=== PATIENT | male | born 1965 | race Two or more races ===

== ENCOUNTER 2019-01-16 09:12 | Outpatient (REF) | payer MEDICAID, SELFPAY ==
[2019-01-16 20:28] LABS: Calculated LDL 159; Cholesterol 248 mg/dL (50-200); Glucose 103 mg/dL (70-100); HDL Cholesterol 52 mg/dL (40-60); Triglyceride 189 mg/dL (30-150)
== END 2019-01-16 09:32 ==
LOC: NCHCN 09:12
PROVIDERS: PCP Family Medicine; Visit Provider Nurse Practitioner Family
DX: E78.5 Hyperlipidemia, unspecified (principal)
CPT/HCPCS: 80061; 82947; 83721

== ENCOUNTER 2019-06-17 10:24 | Outpatient (REF) | payer MEDICAID, SELFPAY ==
[2019-06-19 11:18] LABS: HBs Antibody, Quant 33.1 mIU/mL; Hepatitis B Surface Ab Positive (See Note)
== END 2019-06-17 10:44 ==
LOC: NCHCN 10:24
PROVIDERS: PCP Family Medicine; Visit Provider Nurse Practitioner Family
DX: Z01.84 Encounter for antibody response examination (principal)
CPT/HCPCS: 86706

== ENCOUNTER 2019-08-14 11:57 | Outpatient (CLI) | payer MEDICAID, SELFPAY ==
--- NOTE | 2019-08-14 10:55 | DI.RAD_ITS ---
EXAM: XR KNEE LT 3V AP,LAT,AMY INDICATION: pain. COMPARISON: No exams were available for comparison TECHNIQUE: 2D digital imaging was performed. FINDINGS: The articular surfaces are well maintained. Bones are intact and normally mineralized. There is a j oint effusion. The soft tissues are unremarkable.
== END 2019-08-14 12:17 ==
PROVIDERS: PCP Family Medicine; Visit Provider Orthopaedic Surgery
DX: M25.562 Pain in left knee (principal); M25.462 Effusion, left knee
CPT/HCPCS: 73562

== ENCOUNTER 2019-08-19 06:55 | Day surgery (SDC) | payer MEDICAID, SELFPAY ==
[2019-08-19 07:13] VITALS: BP 115/75; PULSE 71; RESP 18; TEMP 36.1; O2SAT 97
== END 2019-08-19 08:00 | disposition home or self-care (01) ==
LOC: SUR 06:56
PROVIDERS: PCP Nurse Practitioner Family; Visit Provider Orthopaedic Surgery
DX: M23.92 Unspecified internal derangement of left knee (principal); Z53.8 Procedure and treatment not carried out for other reasons

== ENCOUNTER 2019-08-21 12:25 | Day surgery (SDC) | payer MEDICAID, SELFPAY ==
[2019-08-21] VITALS (8 sets, daily range): BP systolic 120–136; BP diastolic 75–94; PULSE 62–68; RESP 16–19; TEMP 36.4–36.8; O2SAT 94–98
[2019-08-21] MEDS: Lactated Ringers 1,000 ML 80 ML IV (13:21)
[2019-08-21] MEDS: ceFAZolin 2 GM/50 ML BAG IVPB (14:22)
[2019-08-21] MEDS: Bupivacaine 0.5% Pres-Free 30 ML VIAL (14:50)
--- NOTE | 2019-08-21 16:04 | PDOC.DSDIS_ITS ---
Discharge Plan Disposition Patient Disposition: HOME Condition: Good Discharge Details Reason For Visit: Arthroscopy L knee Attending Provider: Rohan Carpenter Primary Care Provider: Melissa Champion Home Meds and New Rx's Prescriptions: New oxycodone 5 mg tablet 5 mg PO Q6H PRN (Reason: pain) Qty: 14 RF: 0 celecoxib [Celebrex] 200 mg capsule 200 mg PO BID Qty: 30 RF: 1 Continued ascorbic acid (vitamin C) [Vitamin C] 500 mg Tablet 500 mg PO DAILY RF: 0 vitamin B complex [B-Complex] Tablet RF: 0 zinc 50 mg Tablet 50 mg PO DAILY RF: 0 Discharge Instructions Additional Instructions: Elevate L leg on 1-2 pillows as much as possible for next 48 hours. Apply cryocuff continuously to L knee overnite tonite. Tomorrow, start to use 4 times/day for 1 hour each time. Crutches to walk. May put as much weight on L leg as your pain allows. Discontinue crutches when you can step on L leg with only mild discomfort. May remove dressings, shower, and get incisions wet after 48 hours. Leave incisions uncovered when they are dry and sealed. Begin outpatient physical therapy at [facility] on Mon or Monday to rehab L knee post-arthroscopic partial medial meniscectomy. Take Celebrex twice/day to decrease inflammation and swelling. Take oxycodone for breakthru pain, if needed. Follow up with in 2 weeks. Stand Alone Forms: DSU Post op Instructions Referrals: Rohan Carpenter MD [ [facility] STAFF PHYSICIAN] - (f/u in 2 weeks.) Equipment/Supplies: Partial Weight Bearing Crutches Activity:: Activity as Tolerated Remove Dressings/Wound Care:: 48 hours Shower/Bathe:: 48 hours Diet:: As Tolerated Discharge Orders Discharge Orders: Discharge Order (Routine); Ordered 08/21/19 Ordered By: Rohan Carpenter DS: Diagnosis Discharge Diagnosis (1) Internal derangement of left knee: Status: Acute
[2019-08-21] MEDS: oxyCODONE-CR 10 MG TABCR PO (16:33)
[2019-08-21] MEDS: Ketorolac 30 MG/ML VIAL IVP (16:36)
--- NOTE | 2019-08-22 07:19 | ROE_ITS ---
REPORT OF OPERATIVE PROCEDURE DATE OF PROCEDURE August 21, 2019 PREOPERATIVE DIAGNOSES Internal derangement left knee with probable torn medial meniscus. POSTOPERATIVE DIAGNOSES Torn medial meniscus and synovitis left knee. DJD medial compartment. PROCEDURE Arthroscopic partial left medial meniscectomy and synovectomy major left knee. ANESTHESIA General, Yamil Calderon CRNA SURGEON Rohan Carpneter M.D. INDICATIONS This is a 53-year-old white male with a 7- year history of recurrent pain and swelling in his left kn ee. He has had previous injections without long-term benefit. He has obtained an MRI scan elsewhere t hat showed a tear of the medial meniscus. He has not responded to previous therapy. When I saw the kike kerr, I felt that he had completely exhausted all conservative measures and was a candidate for arth roscopic examination of his knee. The patient agreed with my assessment and wished to proceed as soon as possible. PROCEDURE DESCRIPTION The patient was taken to the Operating Room on 08/21/2019. He was placed supine on the operating tab le and a general anesthetic was administered. The left leg was placed in the arthroscopic leg lassiter . The left knee was then prepped and draped free in the usual sterile fashion. Arthroscopic portals were established. Upon inserting, that outflow came from the suprapatellar pouch. There was a large outpouring of synovial fluid with numerous rice bodies. The remainder of the arthroscopic portals we re established. The knee was inflated with normal saline solution using the arthroscopy pump and then routine arthroscopic examination proceeded. Intraoperative photographs were obtained to document th e findings. The medial gutter of the knee was obliterated by hypertrophic, hyperemic synovium. There were still n umerous rice bodies floating. The knee was thoroughly irrigated, and then through an anteromedial por ian I inserted the 90-degree ArthroCare wand and began a synovectomy to help with visualization. I cl eaned out the entire medial gutter, proceeded to the suprapatellar pouch, went to the lateral gutter and then finished cleaning up the intercondylar notch and the anterior compartment of the knee. With the hypertrophic, hyperemic synovium excised, visualization was much improved. 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 There was degenerative tear of the posterior horn of the medial meniscus. The meniscal tear was resected using radiofrequency electrocautery wand and some up-bitting forceps. The remainder rim of the medial meniscus was smooth and contoured. I would estimate that at least 75% of the meniscus r emained following resection. The intracondylar notch showed intact anterior and posterior cruciate ligaments. I then continued the synovectomy posterior to the PCL and around the posterior horn of the lateral meniscus. Entering the lateral compartment, the lateral meniscus was intact and undamaged. The articular cartil age in the lateral compartment was completely normal and intact. The patellofemoral joint showed normal patellar tracking and normal articular cartilage in the trochl ear of the femur and on the undersurface of the patella. At this point, the knee was copiously irrigated with saline solution until the outflow was almost jh ar. The arthroscopy portals were infiltrated with 0.5% Marcaine solution and approximated with interr upted #4-0 Nylon sutures. The patient was then given 1 gram of tranexamic acid IV to limit postop bl eeding in the knee. The incision were dressed with Xeroform gauze, sterile gauze, 4x4s, ABD pads and wrapped with 6-inch Jalen bandage for a light compressive dressing. The patient tolerated the procedure well. His anesthesia was reversed without complications. He was discharged to the Recovery Room in g ood condition. The patient was then discharged home from the Day Surgery unit when fully recovered from his general anesthesia. He was given instructions to use crutches to walk, weightbearing as tolerated to the left leg. He may discontinue the crutches when he can step fully on his left leg without pain. He is to t ry to elevate his left knee on one to two pillows as much as possible for the next 48 hours. He is to apply a Cryo/Cuff to his left knee continuously overnight tonight. Tomorrow he will start using the Cryo/Cuff 4 times a day for an hour each time. He may remove his dressing, shower and get his incisio n wet after 48 hours. He can leave the incisions uncovered when they are dry and sealed. He will begi n outpatient physical therapy on Monday or Monday for rehab of his left knee following arthroscopic p artial medial meniscectomy. He is given a given a prescription for inflammation of Celebrex 200 mg p.o. b.i.d. for 15 days. He is given a prescription for breakthrough pain of oxycodone 5 mg 1 p.o. q. 6 hours p.r.n. He will followup with Dr. Carpenter in two weeks.
== END 2019-08-21 18:14 | disposition home or self-care (01) ==
PROVIDERS: PCP Nurse Practitioner Family; Visit Provider Orthopaedic Surgery
PROC: (CPT 29876; principal; 2019-08-21 15:30)
DX: M23.222 Derangement of posterior horn of medial meniscus due to old tear or injury, left knee (principal); M23.42 Loose body in knee, left knee; M65.9 Synovitis and tenosynovitis, unspecified; M17.12 Unilateral primary osteoarthritis, left knee
CPT/HCPCS: 29876; 29881; J0690; J1100; J1885; J2001; J2250; J2405; J2704

== ENCOUNTER 2020-12-23 14:08 | Outpatient (REF) | payer MEDICAID, SELFPAY ==
[2020-12-23 16:00] LABS: Hemoglobin A1C 5.2 % (<5.7)
[2020-12-23 16:01] LABS: HDL Cholesterol 46 mg/dL (40-60); LDL CHOLESTEROL 130 mg/dL (<100)
[2020-12-24 09:39] LABS: Hepatitis B Surface Ag Negative (Negative)
[2020-12-24 09:47] LABS: Hepatitis C Ab w Rflx HCV PCR Negative (Negative)
[2020-12-24 10:04] LABS: HIV-1/2 Ag & Ab Screen Negative (Negative)
[2020-12-24 10:25] LABS: Syphilis Serology (RPR) Negative (Negative)
[2020-12-24 14:37] LABS: Chlamydia Result Negative (Negative); GC Result Negative (Negative)
== END 2020-12-23 14:09 | disposition home or self-care (01) ==
LOC: NCHCN 14:08
PROVIDERS: PCP Nurse Practitioner Family; Visit Provider Nurse Practitioner Family
DX: E78.5 Hyperlipidemia, unspecified (principal); Z11.3 Encounter for screening for infections with a predominantly sexual mode of transmission; Z11.59 Encounter for screening for other viral diseases; Z11.4 Encounter for screening for human immunodeficiency virus [HIV]; Z13.1 Encounter for screening for diabetes mellitus
CPT/HCPCS: 83721; 86803; 87340; 87389; 87491; 87591; 83036; 83718; 86592

== ENCOUNTER 2023-10-30 16:16 | Outpatient (REF) | payer MEDICAID, SELFPAY ==
[2023-10-30 16:54] LABS: Anion Gap 8.6 mmol/L (3-11); BUN 21 mg/dL (7-18); CO2 24.4 mmol/L (21.0-32.0); CREATININE 1.2 mg/dL (0.70-1.30); Calcium 9.4 mg/dL (8.5-10.1); Chloride 105 mmol/L (98-107); Glucose 111 mg/dL (74-106); HDL Cholesterol 56 mg/dL (40-60); LDL CHOLESTEROL 178 mg/dL (<100); Potassium 4.7 mmol/L (3.5-5.1); Sodium 138 mmol/L (136-145)
== END 2023-10-30 16:17 | disposition home or self-care (01) ==
LOC: NCHCN 16:16
PROVIDERS: PCP Nurse Practitioner Family; Visit Provider Nurse Practitioner Family
DX: R10.9 Unspecified abdominal pain (principal); R79.89 Other specified abnormal findings of blood chemistry
CPT/HCPCS: 80048; 83721; 83718

== ENCOUNTER 2023-11-29 14:07 | Outpatient (REF) | payer MEDICAID, SELFPAY ==
[2023-11-29 13:47] LABS: HCT 43.8 % (40.0-50.0); HGB 15.2 g/dL (13.5-17.5); MCH 32.8 pg (27.0-33.0); MCHC 34.7 % (32.0-36.0); MCV 94 fL (80-95); Platelet Count 344 10^3/uL (130-400); RBC 4.64 10^6/uL (4.36-5.78); RDW 15.3 % (11.8-14.1); RDW-SD 53.1 fL; WBC 7.91 10^3/uL (4.4-10.8)
[2023-11-29 14:12] LABS: Iron 227 ug/dL (65-175); Total Iron Binding Capacity 457 ug/dL (250-450); Transferrin Sat 50 % (20-55)
[2023-11-29 14:30] LABS: ALT 52 U/L (16-63); AST 31 U/L (15-37); Alkaline Phosphatase 96 U/L (46-116); Bilirubin, Total 0.5 mg/dL (0.2-1.0); Ferritin 71 ng/mL (26-388); Total Protein 7.9 g/dL (6.4-8.2)
[2023-11-29 14:38] LABS: Bilirubin, Direct 0.1 mg/dL (0.0-0.2)
[2023-11-30 18:52] LABS: PSA, Screening 2.4 ng/mL (<=3.5)
== END 2023-11-29 14:08 | disposition home or self-care (01) ==
LOC: NCHCN 14:07
PROVIDERS: PCP Nurse Practitioner Family; Visit Provider Nurse Practitioner Family
DX: N40.0 Benign prostatic hyperplasia without lower urinary tract symptoms (principal); K76.0 Fatty (change of) liver, not elsewhere classified
CPT/HCPCS: 80076; 84153; 85027; 82728; 83540; 83550

== ENCOUNTER 2024-09-06 01:12 | Outpatient (CLI) | payer MEDICAID, SELFPAY ==
[2024-09-06 09:26] LABS: Calculated LDL 147 mg/dL (<100); Cholesterol 236 mg/dL (<200); HDL Cholesterol 79 mg/dL (40-60); Triglyceride 53 mg/dL (<150)
== END 2024-09-06 01:13 | disposition home or self-care (01) ==
LOC: LBO 01:12
PROVIDERS: PCP Nurse Practitioner Family; Referring Provider Nurse Practitioner Family; Visit Provider Nurse Practitioner Family
DX: E78.5 Hyperlipidemia, unspecified (principal)
CPT/HCPCS: 36415; 80061